=== PATIENT | female | born 1945 | race Caucasian/White ===

== ENCOUNTER 2019-12-10 06:10 | Day surgery (SDC) | payer MEDICARE, OTHER ==
[~2019-12-10 06:10] MED LIST: Buffered Lidocaine 1% SYRIN* 1 ML/SYRINGE INTRADERM ONE; Clindamycin 900 MG/D5W BAG(*) 900 MG/50 ML BAG IVPB ONE; Dexamethasone IV* 4 MG/ML 1 ML (4 MG) IV SLOW PU ONE; Dexamethasone IV* 4 MG/ML 1 ML (4 MG) ONE; Famotidine IV* 10 MG/ML 2 ML (20 mg) IV ONE; Heparin VIAL(*) 5000 UNITS/ML VIAL (FIVE THOUSAND) ONE; Lactated Ringers 1000 ML Bag* 1,000 ML IV SCH; Ondansetron INJ* 2 MG/ML VIAL ONE; Scopolamine 1.5 mg* PATCH ONE
[2019-12-10] MEDS ORDERED: Famotidine IV* 10 MG/ML 2 ML (20 mg) ONE (06:39)
[2019-12-10] MEDS ORDERED: Phenylephrine 40 MCG/ML SYRINGE ONE (06:51)
[2019-12-10] MEDS ORDERED: Lidocaine 2% PF * 5 ML VIAL ONE (06:53)
[2019-12-10] MEDS ORDERED: Succinylcholine* 20 MG/ML 10 ML VIAL ONE (06:53)
[2019-12-10] MEDS ORDERED: Propofol* 10 MG/ML 20 ML BTL ONE (06:53)
[2019-12-10] MEDS ORDERED: Ketorolac INJ* 30 MG/ML 1 ML VIAL ONE (06:53)
[2019-12-10] MEDS ORDERED: Glycopyrrolate IV* 0.2 MG/ML 1 ML VIAL ONE (06:54)
[2019-12-10] MEDS ORDERED: Lidocaine 1% w EPI 1:100,000* MDV 20 ML VIAL ONE ×2 (07:07→07:21)
[2019-12-10] MEDS ORDERED: Bupivacaine 0.25% SDV* 30 ML ONE (07:08)
[2019-12-10] MEDS ORDERED: fentaNYL* 50 MCG/ML 2 ML VIAL (100 MCG VIAL) ONE ×3 (07:23→11:34)
[2019-12-10] MEDS ORDERED: EPHEDrine (Pressors)* 50 MG/ML VIAL ONE (10:44)
[2019-12-10] MEDS ORDERED: DiMENhydriNATE IV* 50 MG/ML VIAL IV PUSH PRN (11:24)
[2019-12-10] MEDS ORDERED: Naloxone* 0.4 MG/ML 1 ML VIAL IV PRN (11:24)
[2019-12-10] MEDS ORDERED: DiMENhydriNATE IV* 50 MG/ML VIAL ONE (11:33)
[2019-12-10] MEDS: fentaNYL* 50 MCG/ML 2 ML VIAL (100 MCG VIAL) IV PRN ×4 (11:38→12:24)
[2019-12-10 14:08] VITALS: BP 128/69
== END 2019-12-10 13:30 | disposition home or self-care (01) ==
LOC: OR 06:10
PROVIDERS: ATTEND Plastic Surgery
DX: N62 Hypertrophy of breast (principal); M54.2 Cervicalgia; M54.5 Low back pain; M25.512 Pain in left shoulder; M25.511 Pain in right shoulder; I10 Essential (primary) hypertension; E78.5 Hyperlipidemia, unspecified; Z87.891 Personal history of nicotine dependence; K58.9 Irritable bowel syndrome, unspecified
CPT/HCPCS: 36415; 86850; 86900; 86901; 88305; A9270-GY; J0330; J1100; J1240; J1644; J1885; J2405; J2704; J3010; J3490